=== PATIENT | female | born 1985 | race American Indian/Alaskan Native ===

== ENCOUNTER 2017-07-22 13:03 | Emergency (ER) | payer SELFPAY ==
[2017-07-22 13:42] VITALS: BP 145/85
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
[2017-07-22 14:32] LABS: Bacteria,Urine 2+ /HPF (Negative); Bilirubin,Urine NEG (Negative); Blood,Urine MOD (Negative); Color,Urine Yellow (Yellow); Hyaline Casts,Urine 1 /LPF; Mucus,Urine FEW /HPF; Urobilinogen,Urine < 2.0 mg/dL (<2.0)
[2017-07-22 14:36] LABS: HCG Qualitative,Urine Negative (Negative)
--- NOTE | 2017-07-22 15:50 | XRay Report ---
FINAL REPORT EXAM: XR NECK SOFT TISSUE HISTORY: anterior neck pain TECHNIQUE: AP and lateral views of the neck soft tissues PRIORS: None. FINDINGS: The tracheal air shadow is patent throughout. No prevertebral soft tissue swelling is seen. The epiglottis is normal. The adenoids and palatine tonsils are normal. Bony structures demonstrate degenerative disc changes at C5-C6. IMPRESSION: Negative views of the soft tissues of the neck.
== END 2017-07-22 16:11 | disposition home or self-care (01) ==
LOC: ED 13:03
DX: S19.89XA Other specified injuries of other specified part of neck, initial encounter (principal); N39.0 Urinary tract infection, site not specified; F32.9 Major depressive disorder, single episode, unspecified; F17.200 Nicotine dependence, unspecified, uncomplicated; Y04.2XXA Assault by strike against or bumped into by another person, initial encounter; Y93.89 Activity, other specified; Y99.8 Other external cause status; Y92.89 Other specified places as the place of occurrence of the external cause
CPT/HCPCS: 70360; 81001; 81025; 99283